=== PATIENT | male | born 1950 | race Caucasian/White ===

== ENCOUNTER 2021-11-08 15:21 | Emergency (ER) | payer MEDICARE ==
[~2021-11-08] VITALS: Ht 180.3 cm; Wt 120.5 kg
[2021-11-08] MEDS ORDERED: LIDOCAINE 2% 20 ML VIAL. IJ ONE (17:00)
[2021-11-08] MEDS ORDERED: NEOMY/BACITR/POLYMYXIN OINT PACKET. TP ONE (17:00)
--- NOTE | 2021-11-08 17:11 | RAD ---
XR HAND_LEFT 3 VIEWS DATE: 11/08/2021 4:48 PM INDICATION: Reason: cut on hand on lopes of car / Spl. Instructions: / History: COMPARISON: None. FINDINGS: Bones: There is no evidence of acute fracture or dislocation. Joints: The joint spaces are normal. Moderate degenerative osteoarthritis involving the first and sec ond carpometacarpal joints and first interphalangeal joint. Miscellaneous: 3 mm curvilinear radiopaque soft tissue foreign body along the ulnar aspect of the pro ximal second phalanx. IMPRESSION: No evidence of acute fracture or dislocation. Indeterminate 3 mm soft tissue foreign body in the prox imal second phalanx. Correlate with hand laceration to exclude retained metal sliver. Electronically signed by: Rio Ratliff DO (11/08/2021 5:08 PM) [id number]
--- NOTE | 2021-11-08 17:24 | PHYS DOC ---
Past History Additional Past Medical Histor: visual impairment Past Surgical History: Knee Replacement, Other Additional Past Surgical Histo: cardiac bypass, back surgery L3-L4 stenosis Alcohol Use: None General Adult EDM: Chief Complaint: LACERATION/AVULSION HPI: HPI: 71-year-old male PMH NIDDM presents the ED with complaints of, on his left dominant hand after patient was trying to jump start his vehicle. Patient states he slipped on ice and fell, believes he cut his left dominant hand on the lopes of his vehicle. Patient is ambidextrous but states he is more dominant in his left hand. Declines any range of motion or decreased sensation. Reports allergic reaction to prior tetanus vaccine "years ago." Cannot recall the specific reaction, refuses tetanus vaccine. Is not on any anticoagulants. Denies being under influence of any alcohol or illicit drug use. Denies head or lose consciousness. Has no associated neck pain, chest pain, dizziness or lightheadedness. Review of Systems: Review of Systems: Constitutional: Denies fever or chills Eyes: Denies change in visual acuity HENT: Denies nasal congestion or sore throat Respiratory: Denies cough or shortness of breath Cardiovascular: Denies chest pain or edema GI: Denies abdominal pain, nausea, vomiting, bloody stools or diarrhea : Denies incontinence or saddle anesthesia Musculoskeletal: Denies back pain or joint pain Integument: Denies rash or diaphoresis Neurologic: Denies headache, focal weakness or sensory changes Endocrine: Denies polyuria or polydipsia Lymphatic: Denies swollen glands Psychiatric: Denies depression or anxiety Current Medications: Current Meds: Current Medications Medications (Trade) Dose Ordered Sig/Nima Start Time Stop Time Status Last Admin Dose Admin Lidocaine HCl (Lidocaine 2%) 20 ml 1X ONCE 11/08/21 17:00 11/08/21 17:01 DC 11/08/21 16:56 20 ML Neomycin/ Polymyxin/ Bacitracin (Triple Antibiotic Ointment) 1 pkt 1X ONCE 11/08/21 17:00 11/08/21 17:01 DC 11/08/21 16:56 1 PKT Allergies: Allergies: Allergies Coded Allergies Type Severity Reaction Last Updated Verified No Known Drug Allergies 11/08/21 No Physical Exam: PE: Constitutional: Well developed, well nourished, no acute distress, non-toxic appearance. HENT: Normocephalic, atraumatic, Eyes: Pupils equal and reactive, EOMI, conjunctiva normal, no discharge. Neck: Normal range of motion, supple, no midline neck pain Cardiovascular: S1/2 present, regular rhythm Skim: warm, dry, avulsion flap of laceration -skin is white and blue is color- suspect with slough off, Extremities: no decreased sensation or restricted range of motion, equal radial pulses, able to touch thumb to each finger, V-shaped laceration with avulsion flap over palmar aspect of hand between 1st and 2nd carpel-fatty tissue exposed, finger abduction and adduction intact, wrist flexion & extension intact, no pain at left elbow, does report chronic arthritis of the left hand Neurologic: Alert and oriented X 3, normal motor function, normal sensory function, no focal deficits noted. [] Psychologic: Affect normal, judgement normal, mood normal. [] Current Patient Data: Vital Signs: Vital Signs Date Time Temp Pulse Resp B/P (MAP) Pulse Ox O2 Delivery O2 Flow Rate FiO2 11/08/21 16:20 97.9 83 18 193/94 (127) 97 Room Air EKG: EKG: [] Radiology/Procedures: Radiology/Procedures: IMAGING REPORT Signed PATIENT: KEN VALLE ACCOUNT: [id number] : 1950 LOCATION: ER AGE: 71 SEX: M EXAM STATUS: REG ER ORD. PHYSICIAN: JOSÉ SOW DO REASON: cut on hand on lopes of car PROCEDURE: HAND LEFT 3V XR HAND_LEFT 3 VIEWS DATE: 11/08/2021 4:48 PM INDICATION: Reason: cut on hand on lopes of car / Spl. Instructions: / History: COMPARISON: None. FINDINGS: Bones: There is no evidence of acute fracture or dislocation. Joints: The joint spaces are normal. Moderate degenerative osteoarthritis involving the first and second carpometacarpal joints and first interphalangeal joint. Miscellaneous: 3 mm curvilinear radiopaque soft tissue foreign body along the ulnar aspect of the proximal second phalanx. IMPRESSION: No evidence of acute fracture or dislocation. Indeterminate 3 mm soft tissue foreign body in the proximal second phalanx. Correlate with hand laceration to exclude retained metal sliver. Electronically signed by: William Ratliff DO (11/08/2021 5:08 PM) [id number] DICTATED AND SIGNED BY: WILLIAM RATLIFF DO DATE: 11/08/211701 CC: PCP,NO; JOSÉ SOW DO ~MTH0 0 Indication: Left hand laceration Procedure: The patient was placed in the appropriate position and anesthesia ar ound the laceration site with 1% lidocaine with epinephrine. The area was then copiously irrigated mildly debrided of subcutaneous fatty tissue-cannot visualize any tendon involvement. The laceration was closed with #6 sutures. The wound area was then dressed with triple antibiotic ointment and sterile dressings. Total repaired wound length: approximally 3 cm. Other Items: None-range of motion intact before and after suture repair The patient tolerated the procedure . Complications: None. Heart Score: C/O Chest Pain: No Risk Factors: Risk Factors: DM, Current or recent (<one month) smoker, HTN, HLP, family history of CAD, obesity. Risk Scores: Score 0 - 3: 2.5% MACE over next 6 weeks - Discharge Home Score 4 - 6: 20.3% MACE over next 6 weeks - Admit for Clinical Observation Score 7 - 10: 72.7% MACE over next 6 weeks - Early Invasive Strategies Course & Med Decision Making: Course & Med Decision Making Pertinent Labs and Imaging studies reviewed. (See chart for details) Concern for simple laceration of subcutaneous tissue of left palmar aspect of patient's hand. X-ray imaging concerning for possible foreign body over the left second phalanx-no visible external injury. Patient cannot recall any prior injury to this digit or known foreign body. Finger and wrist range of motion intact. Patient tolerated repair. Educated on wound care instructions and suture removal in 7 days. Will discharge home with strict ED return precautions were given for rash, decreased range of motion, neurologic deficits or increased pain. Encouraged urgent outpatient follow-up with PMD for routine ca re, hand surgery follow-up discussed in detail regarding any decreased range of motion. Life-threatening processes were considered but are low suspicion at this time, given history, physical exam and ED workup. Pt was educated on all prescription medications and adverse effects. All patient's questions were answered and pt was stable at time of discharge. Life/limb-threatening differential includes but is not limited to, trauma (fracture, dislocation, laceration, compartment syndrome, tendon or ligament injury), neurovascular injury or deficitcva/tia, infection (osteomyelitis, abscess, cellulitis, septic arthritis, necrotizing fasciitis), deep vein thrombosis, renal/cardiac/liver disease, medication adverse effect, lymphedema/anasarca, vascular insufficiency or malignancy, I have spoken with the patient and/or caregivers. I explained the patient's condition, diagnoses and treatment plan based on the information available to me at this time. I have answered the patient and/or caregiver's questions and a ddressed any concerns. The patient and/or caregivers have a good understanding of patient's diagnosis, condition and treatment plan as can be expected at this point. Vital signs have been stable. Patient's condition is stable and appropriate for discharge from the emergency department. Patient will pursue further outpatient evaluation with primary care physician or other designated or consulting physician as outlined in the discharge instructions. The patient and/or caregivers are agreeable to this plan of care and follow-up instructions have been explained in detail. The patient and/or caregivers have received these instructions in written form and have expressed an understanding of the discharge instructions. The patient and/or caregivers are aware that any significant change of condition or worsening of symptoms should prompt immediate return to this or the closest emergency department or call to [facility] [employer]. Minh Disclaimer: Minh Disclaimer: This electronic medical record was generated, in whole or in part, using a voice recognition dictation system. Departure Departure: Impression: Primary Impression: Laceration of hand Disposition: 01 HOME / SELF CARE / HOMELESS Condition: STABLE Referrals: PCP,NO (PCP) Follow-up with your primary care physician in 24 to 48 hours OR FOLLOW UP WITH FAMILY MEDICINE: [address] [facility]– [address], [address] [place] [address] Patient Instructions: Laceration Care, Adult, Sutured Wound Care Additional Instructions: SUTURE REMOVAL IN 7 DAYS [facility] FOR DEFIINITIVE MANAGEMENT WITHIN THE NEXT 7 DAYS-if you should develop any severe pain, rash or decreased range of motion Appointments may be made with Abdirashid Weinberg MD, Franc Harris MD, Peter Mireles MD or Juan Pablo Boswell MD, by calling [phone] EMERGENCY DEPARTMENT GENERAL DISCHARGE INSTRUCTIONS Thank you for coming to [facility] (ED) today and trusting us with you care. We trust that you had a positivie experience in our Emergency Department. If you wish to speak to the department management, you may call the director at [phone]. YOUR FOLLOW UP INSTRUCTIONS ARE FOLLOWS: 1. Do you have a private Doctor? If you do not have a private doctor, please ask for a resource list of physicians or clinics that may be able to assist you with follow up care. 2. The Emergency Physician has interpreted your x-rays. The X-Ray specialist will also review them. If there is a change in the findings, you will be notified in 48 hours when at all possible. 3. A lab test or culture has been done, your results will be reviewed and you will be notified if you need a change in treatment. ADDITIONAL INSTRUCTIONS AND INFORMATION: 1. Your care today has been supervised by a physician who is specially trained in emergency care. Many problems require more than one evaluation for a complete diagnosis and treatment. We recommend that you schedule your follow up appointment as recommended to ensure complete treatment of you illness or injury. If you are unable to obtain follow up care and continue to have a problem, or if your condition worsens, we recommend that you return to the ED. 2. We are not able to safely determine your condition over the phone nor are we able to give sound medical advice over the phone. For these safety reasons, if you call for medical advice we will ask you to come to the ED for further evaluation. 3. If you have any questions regarding these discharge instructions please call the ED at [phone]. SAFETY INFORMATION: In the interest of safety, wellness, and injury prevention; we encourage you to wear your sealbelt, if you smoke; quite smoking, and we encourage family to use a protective helmet for bicycling and other sporting events that present an increased risk for head injury. IF YOUR SYMPTOMS WORSEN OR NEW SYMPTOMS DEVELOP, OR YOU HAVE CONCERNS ABOUT YOUR CONDITION; OR IF YOUR CONDITION WORSENS WHILE YOU ARE WAITING FOR YOUR FOLLOW UP APPOINTMENT; EITHER CONTACT YOUR PRIMARY CARE DOCTOR, THE PHYSICIAN WHOSE NAME AND NUMBER YOU WERE GIVEN, OR RETURN TO THE ED IMMEDIATELY. Scripts Cephalexin (KEFLEX) 500 Mg Capsule 1 CAP PO QID for HAND LACERATION for 7 Days, #28 CAP Prov: JOSÉ SOW DO 11/08/21 JOSÉ SOW DO Nov 08, 2021 17:24
[2021-11-08] MEDS ORDERED: CEPH500C PO (17:59)
[2021-11-08 18:17] VITALS: BP 165/93
== END 2021-11-08 18:17 | disposition home or self-care (01) ==
LOC: ER 15:21
DX: S61.412A Laceration without foreign body of left hand, initial encounter (principal); E11.9 Type 2 diabetes mellitus without complications; W00.0XXA Fall on same level due to ice and snow, initial encounter; Y93.89 Activity, other specified; Y92.89 Other specified places as the place of occurrence of the external cause; Y99.8 Other external cause status
CPT/HCPCS: 12002; 73130; 99283; J2001